=== PATIENT | male | born 1975 | race Caucasian/White ===

== ENCOUNTER 2018-08-18 12:03 | Emergency (ER) | payer OTHER ==
[~2018-08-18] VITALS: Ht 167.6 cm; Wt 81.6 kg
[2018-08-18] MEDS ORDERED: BENADRYL25 MG PO (15:30)
[2018-08-18] MEDS ORDERED: ELOCON45 G1 TOP (15:30)
== END 2018-08-18 15:48 | disposition home or self-care (01) ==
LOC: ER 12:03
DX: R21 Rash and other nonspecific skin eruption (principal)